=== PATIENT | female | born 1950 | race Caucasian/White ===

== ENCOUNTER 2021-10-25 12:27 | Emergency (ER) | payer MEDICARE, OTHER ==
[2021-10-25 13:40] LABS: BASOPHIL 0.3 % (0-2); EOSINOPHIL 0.7 % (0-7); HCT 41.4 % (37.0-47.0); HGB 14.3 g/dl (12.5-16.0); LYMPHOCYTE 12.3 % (15-48); MCH 32.9 pg (25.0-31.0); MCHC 34.5 g/dL (32.0-36.0); MCV 95.4 fL (78.0-100.0); MONOCYTE 8.9 % (0-12); MPV 10.2 fL (6.0-9.5); NEUTROPHIL 77.4 % (41-80); NRBC 0; PLT 225 K/uL (150-400); RBC 4.34 M/uL (4.20-5.40); RDW 11.8 % (11.5-14.0); WBC 13.5 K/uL (4.0-10.5)
[2021-10-25 13:42] LABS: BILIRUBIN NEGATIVE (NEGATIVE); BLOOD TRACE-INTACT Ery/uL (NEGATIVE); CLARITY CLEAR (CLEAR); COLOR YELLOW (YELLOW); GLUCOSE (U) NORMAL (NORMAL); LEUKOCYTES NEGATIVE Leu/uL (NEGATIVE); NITRITE NEGATIVE (NEGATIVE); PROTEIN NEGATIVE (NEGATIVE); SPECIFIC GRAVITY 1.015 (1.001-1.030); UROBILINOGEN 0.2 mg/dL (0.2-1.0)
[2021-10-25 13:49] LABS: INR 1.04 (0.9-1.2); PTT 24.7 SECONDS (24.4-34.7)
[2021-10-25 13:55] LABS: SQUAMOUS EPITHELIAL CELLS RARE; URINARY RBC RARE; URINARY WBC RARE
[2021-10-25 14:02] LABS: ALBUMIN 3.7 g/dL (3.4-5.0); BILIRUBIN - TOTAL 1.2 mg/dL (0.2-1.0); BUN/CREAT RATIO (CALC) 21.4 RATIO; CREATININE 0.7 mg/dL (0.51-0.95); GLOBULIN (CALCULATION) 2.7 g/dL; POTASSIUM 3.3 mmol/L (3.5-5.1); TOTAL PROTEIN 6.4 g/dL (6.4-8.2)
[2021-10-25 14:08] LABS: LACTIC ACID 1.5 mmol/L (0.4-1.9)
[2021-10-25] MEDS ORDERED: METRONIDAZOLE500 MG PO (15:28)
== END 2021-10-25 18:04 | disposition home or self-care (01) ==
LOC: FER 12:27
PROVIDERS: Emergency Medicine
DX: K52.9 Noninfective gastroenteritis and colitis, unspecified (principal); Z79.82 Long term (current) use of aspirin
CPT/HCPCS: 36415; 80053; 81001; 82270; 83605; 83690; 84145; 85025; 85610; 85730; Q9967

== ENCOUNTER → 2022-04-03 | Day surgery (SDC) | payer MEDICARE, OTHER ==
[~2022-04-03] VITALS: Ht 154.9 cm; Wt 80.9 kg
[~2022-04-03] MED LIST: ALIGN4 MG PO; AMOX TR-K CLV1 EAC4 PO; AUGMENTIN 500-1 EACH PO; CHILDREN'S ASPI81 MG PO; LISINOPRIL-HCT1 EAC2 PO; LOPRESSOR25 MG PO; METRONIDAZOLE500 MG PO; VALACYCLOVIR1000 MG PO
== END | disposition home or self-care (01) ==
LOC: FAS 06:30
DX: K52.9 Noninfective gastroenteritis and colitis, unspecified (principal); K62.1 Rectal polyp; K57.30 Diverticulosis of large intestine without perforation or abscess without bleeding; K64.8 Other hemorrhoids; I10 Essential (primary) hypertension; M19.90 Unspecified osteoarthritis, unspecified site; F41.9 Anxiety disorder, unspecified; Z79.82 Long term (current) use of aspirin; Z79.899 Other long term (current) drug therapy
CPT/HCPCS: J2704; J7120